=== PATIENT | male | born 1960 | race Caucasian/White ===

== ENCOUNTER 2023-03-12 05:07 | Emergency (ER) | payer OTHER ==
--- OUTSIDE RECORDS SUMMARY | 2023-03-12 05:10 | XMS REPORT | Continuity of Care Document ---
:1960 Author Organization [facility] t Address [address] [facility] [address] [place] [address] Care Team Providers Name Role Phone Unavailable Unavailable Unavailable Problems This patient has no known problems. Allergies, Adverse Reactions, Alerts This patient has no known allergies or adverse reactions. Medications This patient has no known medications. Procedures This patient has no known procedures. Encounters Start End Encounter Admission Attending Care Care Encounter Source Date/Time Date/Time Type Type Clinicians Facility Department ID 2023-02-24 2023-02-24 Outpatient [facility] Healthcare [id number] [facility] 14:06:56 14:06:56 0523 F Lionel 2022-12-03 2022-12-03 Outpatient [id number] [facility] 09:14:29 09:14:29 0301 F Lionel 2022-08-07 2022-08-07 Outpatient [id number] [facility] 17:25:50 17:25:50 1103 F Lionel Results This patient has no known results.
[2023-03-12] MEDS ORDERED: NA CHLORIDE 0.9% 1,000 ML ONE (05:24)
[2023-03-12 05:30] LABS: Arterial Blood Carboxyhemoglob 2.8 % (0-1.5); Blood Gas Oxyhemoglobin 91.4 % (94-97); Blood O2 Saturation 95.2 % (92-98.5)
[2023-03-12 05:41] LABS: Specific Gravity 1.022 (1.005-1.030); Urine Bilirubin NEGATIVE (Negative); Urine Blood Negative (Negative); Urine Clarity Clear (Clear); Urine Color Light-Yellow (Yellow); Urine Glucose NEGATIVE (Negative); Urine Protein NEGATIVE (Negative); Urine Urobilinogen Normal (Normal)
[2023-03-12 05:46] LABS: Absolute Lymphocytes (CBC) 1.4 K/uL (0.7-4.9); Hematocrit 34.9 % (39.6-49.0); Lymphocytes % 19.5 % (15.3-44.8); MCV 91.6 fL (80-100); MPV 7.9 fL (7.6-11.3); Protime INR 1.15; RBC Red Blood Cell Count 3.81 M/uL (4.33-5.43)
[2023-03-12 06:05] LABS: ALT/SGPT 23 U/L (16-61); AST/SGOT 22 U/L (15-37); Alkaline Phosphatase 37 U/L (45-117); BUN Blood Urea Nitrogen 19 mg/dL (7-18); Barbiturates NEGATIVE (NEGATIVE); Benzodiazepines NEGATIVE (NEGATIVE); Bicarbonate 29 mEq/L (21-32); Bilirubin Direct 0.2 mg/dL (0-0.2); Bilirubin Indirect, Calculated 0.5 mg/dL (0.2-0.8); Bilirubin Total 0.7 mg/dL (0.2-1.0); Cocaine NEGATIVE (NEGATIVE); Glomerular Filtration Rate 105 ml/min (=/>90); Glucose Level 99 mg/dL (74-106); METHAMPHETAM POSITIVE (NEGATIVE); Methadone NEGATIVE (NEGATIVE); Opiates NEGATIVE (NEGATIVE); Phencyclidine NEGATIVE (NEGATIVE); Protein, Total 6.6 g/dL (6.4-8.2); Sodium Level 136 mEq/L (136-145); THC Cannibis POSITIVE (NEGATIVE)
[2023-03-12] MEDS ORDERED: ONDANSETRON 4 MG/2 ML VIAL ONE (06:16)
[2023-03-12] MEDS ORDERED: THIAMINE 200 MG/2 ML INJ ONE (06:16)
[2023-03-12] MEDS ORDERED: D5 0.9 NS 1,000 ML IV ONE (06:17)
[2023-03-12 06:37] LABS: SARS-CoV-2 Antigen Rapid Res Negative (Negative)
--- NOTE | 2023-03-12 10:50 | RAD REPORT ---
EXAM DESCRIPTION: CT - Head C Spine Mpr Wo Con - 03/12/2023 7:02 am CLINICAL HISTORY: 62 years Male CONFUSED TECHNIQUE: Noncontrast CT head and cervical spine with coronal and sagittal reformats. All CT scans at this facility use dose modulation, iterative reconstruction, and/or weight based dosing when appro priate to reduce radiation dose to as low as reasonably achievable. COMPARISON: None. FINDINGS: HEAD: Brain: No intracranial hemorrhage, midline shift, mass or mass effect. No obvious large acute territo rial infarction. Ventricles: No hydrocephalus. Orbits: Unremarkable. Sinus: Partial opacification of ethmoid sinuses. Mastoid: clear Osseous: Unremarkable. Soft tissues: Unremarkable. CERVICAL SPINE: Vertebra: No acute fracture. 5 x 3 mm focal lucency at C3 vertebral body anteriorly. Degenerative change: Multilevel degenerative changes. No high grade spinal canal stenosis. Alignment: No spondylolisthesis. Soft tissues: Unremarkable. Lungs: Emphysematous changes of the visualized lung apices. IMPRESSION: 1. No acute intracranial findings. 2. No acute cervical spine pathology. 3. Indeterminate 5 mm focus of lucency in C3 vertebral body anteriorly. Consider further evaluation w ith routine outpatient MRI Electronically signed by: Gui Chaney MD 03/12/2023 6:54 AM CDT Due to temporary technical issues with the PACS/Fluency reporting system, reports are being signed by the in house radiologists without review as a courtesy to insure prompt reporting. The interpreting radiologist is fully responsible for the content of the report.
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
[2023-03-12 13:35] VITALS: TEMP 97.5
[2023-03-12 13:47] VITALS: O2SAT 98
[2023-03-12 13:48] VITALS: BP 116/66
--- NOTE | 2023-03-13 14:50 | EKG ---
Test Date: 2023-03-12 Test Time: 06:50:21 Wellness Ambassador: JUAN CARLOS MEASUREMENT RESULTS: Intervals: Rate: 73 [place]: 134 QRSD: 72 QT: 410 QTc: 451 [place]: P: 21 [place]: 134 QRS: 19 T: 2 INTERPRETIVE STATEMENTS: Normal sinus rhythm Normal ECG Compared to ECG 02/28/2016 06:50:02 Sinus tachycardia no longer present Left-axis deviation no longer present ST (T wave) deviation no longer present Electronically Signed On 03-13-23 14:44:51 CDT by Harish Alvarado
== END 2023-03-12 12:56 | disposition home or self-care (01) ==
LOC: ER 05:07
DX: F19.10 Other psychoactive substance abuse, uncomplicated (principal); M54.50 Low back pain, unspecified; Z20.822 Contact with and (suspected) exposure to COVID-19
CPT/HCPCS: 96365; 96361; 96368; 93005; 85025; 80048; 36415; 85610; 80076; 85730; 81003; 80307; 72131; 70450; 72125; 82805; 96375; 99285; 96366; 80143; 80179; 82077; 87811; 36600; J3411; J2405; J7042; J7030

== ENCOUNTER 2023-03-12 19:36 | Emergency (ER) | payer OTHER ==
[2023-03-12] MEDS ORDERED: NALOXONE HCL 2 MG/2 ML VIAL ONE (19:52)
[2023-03-12] MEDS ORDERED: NALOXONE 0.4 MG/ML VIAL ONE (19:52)
[2023-03-12] MEDS ORDERED: NA CHLORIDE 0.9% 1,000 ML ONE (20:04)
--- OUTSIDE RECORDS SUMMARY | 2023-03-12 20:07 | XMS REPORT | Continuity of Care Document ---
:1960 Author Organization [facility] t Address [address] [place] [address] Care Team Providers Name Role Phone Unavailable [...] Clinicians Facility Department ID 2023-02-24 2023-02-24 Outpatient [facility] [id number] [facility] 14:06:56 14:06:56 0523 F Lionel 2022-12-03 2022-12-03 Outpatient [facility] [id number] [facility] 09:14:29 09:14:29 0301 F Lionel 2022-08-07 2022-08-07 Outpatient [facility] [id number] [facility] 17:25:50 17:25:50 1103 F Lionel Results This patient has no known results.
[2023-03-12 20:23] LABS: Absolute Lymphocytes (CBC) 1.7 K/uL (0.7-4.9); Hematocrit 36.9 % (39.6-49.0); Lymphocytes % 22.1 % (15.3-44.8); MCV 91.7 fL (80-100); MPV 8.4 fL (7.6-11.3); RBC Red Blood Cell Count 4.03 M/uL (4.33-5.43)
[2023-03-12 20:26] LABS: Specific Gravity 1.017 (1.005-1.030); Urine Bacteria None Seen /HPF (<20); Urine Bilirubin NEGATIVE (Negative); Urine Blood 3+ (Negative); Urine Clarity Turbid (Clear); Urine Color Light-Yellow (Yellow); Urine Glucose NEGATIVE (Negative); Urine Mucus Slight /HPF (None Seen); Urine Protein TRACE (Negative); Urine RBC >50 /HPF (None Seen); Urine Urobilinogen Normal (Normal); Urine pH 5.5 (5.0-7.0)
[2023-03-12 20:31] LABS: Protime INR 1.05
[2023-03-12 20:34] LABS: Barbiturates NEGATIVE (NEGATIVE); Benzodiazepines POSITIVE (NEGATIVE); Cocaine NEGATIVE (NEGATIVE); METHAMPHETAM POSITIVE (NEGATIVE); Methadone NEGATIVE (NEGATIVE); Opiates NEGATIVE (NEGATIVE); Phencyclidine NEGATIVE (NEGATIVE); THC Cannibis POSITIVE (NEGATIVE)
[2023-03-12 20:45] LABS: ALT/SGPT 25 U/L (16-61); AST/SGOT 27 U/L (15-37); Albumin 3.2 g/dL (3.4-5.0); Alkaline Phosphatase 40 U/L (45-117); BUN Blood Urea Nitrogen 18 mg/dL (7-18); Bicarbonate 28 mEq/L (21-32); Bilirubin Direct 0.2 mg/dL (0-0.2); Bilirubin Indirect, Calculated 0.7 mg/dL (0.2-0.8); Bilirubin Total 0.9 mg/dL (0.2-1.0); Creatine Phosphokinase 251 U/L (39-308); Glomerular Filtration Rate 106 ml/min (=/>90); Glucose Level 97 mg/dL (74-106); Potassium 3.2 mEq/L (3.5-5.1); Protein, Total 7.2 g/dL (6.4-8.2); Sodium Level 137 mEq/L (136-145)
[2023-03-12] MEDS ORDERED: MIDAZOLAM HCL 2 MG/2 ML INJ ONE (23:48)
[2023-03-13] MEDS ORDERED: WATER FOR INJ,STERILE 10 ML ONE (00:18)
[2023-03-13] MEDS ORDERED: ZIPRASIDONE MESYLA 20 MG/VIAL IM ONE (00:18)
[2023-03-13] MEDS ORDERED: NA CHLORIDE 0.9% 1,000 ML ONE (00:31)
[2023-03-13] MEDS ORDERED: KCL 20 MEQ/100 mL IVPB 100 ML IV ONE (00:31)
--- NOTE | 2023-03-13 02:48 | ER ---
Nurse's Notes [facility] Name: Osvaldo Gallegos Age: 62 yrs Sex: Male : 1960 Arrival Date: 03/12/2023 Time: 19:36 Bed 5 Private MD: Diagnosis: Adverse effect of amphetamines;Adverse effect of benzodiazepines;Hypokalemia Presentation: 03/12 19:42 Chief complaint: EMS states: EMS stated patient was found on the ground pf1 unresponsive, responds to painful stimuli,onset approximately 1 hour ago. Patient currently in PD custody. PD officer stated patient was being arrested, was alert and orientated approximately 1 hour ago then became AMS. Coronavirus screen: At this time, unable to obtain information related to travel outside the [place] Ebola Screen: Patient negative for fever greater than or equal to 101.5 degrees Fahrenheit, and additional compatible Ebola Virus Disease symptoms. Initial Sepsis Screen: Does the patient meet any 2 criteria? No. Patient's initial sepsis screen is negative. Does the patient have a suspected source of infection? No. Patient's initial sepsis screen is negative. Risk Assessment:. 19:42 Method Of Arrival: EMS: [facility] pf1 22:09 Risk Assessment: Do you want to hurt yourself or someone else? Unable to obtain. Onset kd3 of symptoms was March 12, 2023. 22:09 Acuity: MONICA 2 kd3 Triage Assessment: 22:10 General: Appears unkempt, malnourished, Behavior is restless. Pain: Unable to use pain kd3 scale. Patient appears to be moaning, restless. Historical: - PMHx: 22:10 abdominal hernia; arsenic poisoning; kd3 - Immunization history:: Adult Immunizations up to date. - Social history:: Smoking status: unknown. Screenin:09 [facility] ED Fall Risk Assessment (Adult) History of falling in the last 3 months, kd3 including since admission No falls in past 3 months (0 pts) Confusion or Disorientation No (0 pts) Intoxicated or Sedated No (0 pts) Impaired Gait No (0 pts) Mobility Assist Device Used No (0 pt) Altered Elimination No (0 pt) Score/Fall Risk Level 0 - 2 = Low Risk Maintained a safe environment. Abuse screen: Denies threats or abuse. Denies injuries from another. Nutritional screening: No deficits noted. Tuberculosis screening: No symptoms or risk factors identified. Assessment: 19:52 Reassessment: Police at bedside (Officer Ty) asking to be called when patient is vc1 discharged for two outstanding warrents. 20:32 General: Appears uncomfortable, Behavior is anxious, quiet, uncooperative. kd3 20:50 General: electronic prepress technician attempted to take the patient to CT with the officer. Pt became kd3 combative at the CT scan and was returned to the room. Will attempt again then the patient is more alert . 21:19 General: Appears uncomfortable, Behavior is agitated, restless, uncooperative. Neuro: kd3 Level of Consciousness is confused, lethargic, Oriented to person. Cardiovascular: Patient's skin is warm and dry. 21:50 Reassessment: No changes from previously documented assessment. Patient and/or family kd3 updated on plan of care and expected duration. Pain level reassessed. 22:40 Reassessment: No changes from previously documented assessment. Patient and/or family kd3 updated on plan of care and expected duration. Pain level reassessed. 03/13 00:01 General: This RN, electronic prepress technician, X-ray tech and officer attempted to take the patient to CT kd3 again. Pt became combative at CT. Provider called to CT room. Verbal order to 2 of versed received. No improvement with the patient. Another 2 of versed was administered. Still no improvement. PT returned to the room. . 02:04 General: Appears uncomfortable, Behavior is calm, quiet, uncooperative. Neuro: Level of kd3 Consciousness is confused, lethargic, Oriented to person. Respiratory: Airway is patent Trachea midline Respiratory effort is even, unlabored, Respiratory pattern is regular, symmetrical. 02:39 General: Nasal trumpet removed. Pt currently maintaining his own airway. . kd3 02:51 Reassessment: Patient and/or family updated on plan of care and expected duration. Pain kd3 level reassessed. 02:52 General: Provider spoke with Matthew Nguyen regarding pt discharge. Plan is to kd3 discharge the patient to police custody. . 03:15 General: Appears in no apparent distress. Behavior is calm, cooperative, Peterson catheter kd3 removed by this RN. Pt is more awake and responsive. . Pain: Complains of pain in back pain. Neuro: Level of Consciousness is awake, obeys commands, Oriented to person, place. Respiratory: Airway is patent Trachea midline Respiratory effort is even, unlabored, Respiratory pattern is regular, symmetrical. Vital Signs: 03/12 19:42 BP 135 / 80; Pulse 104; Resp 20; Temp 98.6; Pulse Ox 97% on R/A; Weight 67.5 kg; pf1 21:01 BP 135 / 76; Pulse 76; Resp 16; Pulse Ox 97% on R/A; kd3 22:09 BP 121 / 66; Pulse 86; Resp 19; Pulse Ox 98% on R/A; kd3 23:22 BP 109 / 65; Pulse 72; Resp 16; Pulse Ox 98% on R/A; kd3 03/13 02:04 Pulse 74; Resp 18; Pulse Ox 100% on R/A; kd3 03:16 BP 122 / 71; Pulse 84; Resp 19; Pulse Ox 100% on R/A; kd3 ED Course: 03/12 19:38 Patient arrived in ED. em1 19:43 Preet Humphrey DO is Attending Physician. ms3 19:43 Pantera Francis PA is PHCP. cp 19:45 Peterson cath inserted, using sterile technique, 16 Fr., by dc, balloon inflated, to kd3 gravity drainage, urine specimen collected. 19:45 Maintain EMS IV. Dressing intact. Good blood return noted. Site clean \T\ dry. Gauge \T\ kd 3 site: 20 gauge right forearm . Placed nasal trumpet 30 Fr via right nare. 20:03 Acetaminophen Sent. kd3 20:03 Basic Metabolic Panel Sent. kd3 20:03 CBC with Diff Sent. kd3 20:03 ETOH Level Sent. kd3 20:03 Hepatic Function Sent. kd3 20:03 PT-INR Sent. kd3 20:03 Ptt, Activated Sent. kd3 20:03 Salicylate Sent. kd3 20:03 Urine Drug Screen Sent. kd3 20:03 Urinalysis w/ reflexes Sent. kd3 20:51 Radiology exam delayed due to took patient to CT, patient not able to hold still enough nj for CT, took patient back, notified Nurse. 21:01 Brandi Peng, RN is Primary Nurse. kd3 22:10 Triage completed. kd3 22:11 Patient has correct armband on for positive identification. kd3 22:11 Arm band placed on. kd3 03/13 01:44 CT Head C Spine In Process Unspecified. EDMS 02:16 Attending Physician role handed off by Preet Humphrey DO sp3 02:16 Stephany Willams MD is Attending Physician. sp3 02:53 No provider procedures requiring assistance completed. kd3 03:17 IV discontinued, intact, bleeding controlled, No redness/swelling at site. Pressure kd3 dressing applied. Administered Medications: 03/12 19:58 Drug: Naloxone IVP 1 mg Route: IVP; Site: left forearm; kd3 03/13 02:54 Follow up: Response: No adverse reaction kd3 03/12 20:02 Drug: NS 0.9% IV 1000 ml Route: IV; Rate: 1 bolus; Site: left forearm; kd3 03/13 03:17 Follow up: IV Status: Completed infusion kd3 03/12 23:22 Not Given (inappropriate at this time ): Potassium PO Effervescent Tablet 50 mEq PO kd3 once; dissolve in 4 ounces of water or juice 23:53 CANCELLED (Physician Discretion): Geodon IM 20 mg IM once cp 23:59 CANCELLED (Physician Discretion): NS 0.9% IV 500 ml IV at 50 ml/hr continuous kd3 03/13 00:00 Drug: Midazolam IVP or IV 2 mg Route: IVP; Site: left antecubital; kd3 02:54 Follow up: Response: No adverse reaction; No change in condition kd3 00:05 Drug: Midazolam IVP or IV 2 mg Route: IVP; Site: left antecubital; kd3 02:54 Follow up: Response: No adverse reaction; No change in condition kd3 00:14 Drug: Geodon IM 10 mg Route: IM; Site: left gluteus; kd3 02:54 Follow up: Response: No adverse reaction; Anxiety decreased kd3 00:40 Drug: Potassium Chloride IV 20 mEq Route: IV; Rate: calculated rate; Site: right pf1 forearm; 03:17 Follow up: IV Status: Completed infusion kd3 00:40 Drug: NS 0.9% IV 1000 ml Route: IV; Rate: 1 bolus; Site: right forearm; pf1 03:17 Follow up: IV Status: Completed infusion kd3 Medication: 03/12 22:11 VIS not applicable for this client. kd3 Output: 03/13 02:29 Urine: 1400ml (Peterson); Total: 1400ml. kd3 Outcome: 02:47 Discharge ordered by . cp 03:17 Discharged to Law Enforcement kd3 03:17 Condition: stable 03:17 Discharge instructions given to patient, Instructed on discharge instructions. 03:17 Patient left the ED. kd3 Signatures: Dispatcher [employer] EDMS Tanmay Michelle em1 Pantera Francis PA PA cp Jordan, Nathan nj Sims, Marcus, DO DO ms3 Stephany Willams MD MD sp3 Brandi Peng, RN RN kd3 Hilda Olivarez RN RN vc1 Shadia Sanchez RN RN pf1 Corrections: (The following items were deleted from the chart) 02:52 03/12 21:50 Reassessment: No changes from previously documented assessment. Patient kd3 and/or family updated on plan of care and expected duration. Pain level reassessed. Patient is alert, oriented x 3, equal unlabored respirations, skin warm/dry/pink. kd3 03/13 02:52 03/12 22:40 Reassessment: No changes from previously documented assessment. Patient kd3 and/or family updated on plan of care and expected duration. Pain level reassessed. Patient is alert, oriented x 3, equal unlabored respirations, skin warm/dry/pink. kd3
--- NOTE | 2023-03-13 02:48 | EDPHYS ---
Physician Documentation [facility] Name: Osvaldo Gallegos Age: 62 yrs Sex: Male : 1960 Arrival Date: 03/12/2023 Time: 19:36 Bed 5 Private MD: ED Physician Stephany Willams HPI: 03/12 19:50 This 62 yrs old Male presents to ER via EMS with complaints of Altered Mental Status. cp 19:50 The patient presents with decreased mental status. Onset: The symptoms/episode cp began/occurred suddenly, just prior to arrival. Possible causes: drug use. Associated signs and symptoms: Pertinent negatives: chest pain, fever. Historical: - PMHx: 22:10 abdominal hernia; arsenic poisoning; kd3 - Immunization history:: Adult Immunizations up to date. - Social history:: Smoking status: unknown. ROS: 19:55 Constitutional: Negative for fever. cp 19:55 Neuro: Positive for altered mental status. cp 19:55 Unable to obtain ROS due to altered mental status. Exam: 19:53 ECG was reviewed by the Attending Physician. cp 19:55 Constitutional: The patient appears non-diaphoretic, non-toxic, well developed, well cp nourished. 19:55 Head/Face: Normocephalic, atraumatic. cp 19:55 Eyes: Pupils: pinpoint, bilaterally, Conjunctiva: normal, no exudate, no injection, Sclera: no appreciated abnormality, Lids and lashes: appear normal, bilaterally. 19:55 ENT: External ear(s): are unremarkable, Ear canal(s): are normal, clear, TM's: dullness, bilaterally, Nose: is normal, Mouth: Lips: moist, Oral mucosa: moist, Posterior pharynx: is normal, airway is patent, no erythema, no exudate. 19:55 Neck: C-spine: vertebral tenderness, is not appreciated, crepitus, is not appreciated, ROM/movement: Meningeal signs: are not present, nuchal rigidity, is not appreciated. 19:55 Chest/axilla: Inspection: normal, Palpation: is normal, no crepitus, no tenderness. 19:55 Cardiovascular: Rate: tachycardic, Rhythm: regular, Edema: is not appreciated, JVD: is not appreciated. 19:55 Respiratory: the patient does not display signs of respiratory distress, Respirations: shallow respirations, that is mild, Breath sounds: are clear throughout, no decreased breath sounds, no stridor, no wheezing. 19:55 Abdomen/GI: Inspection: abdomen appears normal, Palpation: abdomen is soft and non-tender, in all quadrants. 19:55 Skin: no rash present. 19:55 Neuro: Mentation: unable to follow commands, somnolent, responsive to pain, Motor: moves all fours, strength is normal. Vital Signs: 19:42 BP 135 / 80; Pulse 104; Resp 20; Temp 98.6; Pulse Ox 97% on R/A; Weight 67.5 kg; pf1 21:01 BP 135 / 76; Pulse 76; Resp 16; Pulse Ox 97% on R/A; kd3 22:09 BP 121 / 66; Pulse 86; Resp 19; Pulse Ox 98% on R/A; kd3 23:22 BP 109 / 65; Pulse 72; Resp 16; Pulse Ox 98% on R/A; kd3 06/09 02:04 Pulse 74; Resp 18; Pulse Ox 100% on R/A; kd3 03:16 BP 122 / 71; Pulse 84; Resp 19; Pulse Ox 100% on R/A; kd3 MDM: 02:47 Patient medically screened. cp 02:47 Data reviewed: vital signs, nurses notes, lab test result(s), EKG, radiologic studies, cp CT scan. 02:47 Differential Diagnosis: CVA, electrolyte abnormality, alcohol intoxication, cp intracranial bleed, overdose, seizure, sepsis, volume depletion. I considered the following discharge prescriptions or medication management in the emergency department Medications were administered in the Emergency Department. See MAR. Counseling: I had a detailed discussion with the patient and/or guardian regarding: the historical points, exam findings, and any diagnostic results supporting the discharge/admit diagnosis, lab results, radiology results, to return to the emergency department if symptoms worsen or persist or if there are any questions or concerns that arise at home. Response to treatment: the patient's symptoms have markedly improved after treatment, and as a result, I will discharge patient. 03/12 19:46 Order name: CK; Complete Time: 20:50 cp 03/12 19:46 Order name: Acetaminophen; Complete Time: 20:50 cp 03/12 19:46 Order name: Basic Metabolic Panel; Complete Time: 20:50 cp /08 22:59 Interpretation: Abnormal: K 3.2; CRE 0.68. cp /08 19:46 Order name: CBC with Diff; Complete Time: 20:50 cp /08 19:46 Order name: ETOH Level; Complete Time: 20:50 cp /08 19:46 Order name: Hepatic Function; Complete Time: 20:50 cp 03/12 19:46 Order name: PT-INR; Complete Time: 20:50 cp 03/12 19:46 Order name: Ptt, Activated; Complete Time: 20:50 cp 03/12 19:46 Order name: Salicylate; Complete Time: 20:50 cp 03/12 19:46 Order name: Urinalysis w/ reflexes; Complete Time: 20:50 cp 03/12 19:46 Order name: Urine Drug Screen; Complete Time: 20:50 08 20:50 Interpretation: Normal except: BZO POSITIVE; METHAMPHETAMINE POSITIVE; THC POSITIVE. / 01:18 Order name: CT Head C Spine 08 19:46 Order name: EKG; Complete Time: 19:47 03/12 19:46 Order name: EKG - Nurse/Tech; Complete Time: 19:54 cp 03/12 19:46 Order name: IV Saline Lock; Complete Time: 20:03 03/12 19:46 Order name: Labs collected and sent; Complete Time: 20:03 08 19:46 Order name: Suicide Screening ([place]); Complete Time: 20:03 03/12 19:46 Order name: Peterson; Complete Time: 20:01 cp EC/08 19:53 Rate is 90 beats/min. Rhythm is regular. IA interval is normal. QRS interval is normal. cp QT interval is normal. T waves are Inverted in lead aVR. Interpreted by me. Reviewed by me. Administered Medications: 19:58 Drug: Naloxone IVP 1 mg Route: IVP; Site: left forearm; [facility] 03/13 02:54 Follow up: Response: No adverse reaction [facility] 03/12 20:02 Drug: NS 0.9% IV 1000 ml Route: IV; Rate: 1 bolus; Site: left forearm; [facility] 03/13 03:17 Follow up: IV Status: Completed infusion [facility] 03/12 23:22 Not Given (inappropriate at this time ): Potassium PO Effervescent Tablet 50 mEq PO kd3 once; dissolve in 4 ounces of water or juice 23:53 CANCELLED (Physician Discretion): Geodon IM 20 mg IM once cp 23:59 CANCELLED (Physician Discretion): NS 0.9% IV 500 ml IV at 50 ml/hr continuous kd3 03/13 00:00 Drug: Midazolam IVP or IV 2 mg Route: IVP; Site: left antecubital; kd3 02:54 Follow up: Response: No adverse reaction; No change in condition kd3 00:05 Drug: Midazolam IVP or IV 2 mg Route: IVP; Site: left antecubital; kd3 02:54 Follow up: Response: No adverse reaction; No change in condition kd3 00:14 Drug: Geodon IM 10 mg Route: IM; Site: left gluteus; kd3 02:54 Follow up: Response: No adverse reaction; Anxiety decreased kd3 00:40 Drug: Potassium Chloride IV 20 mEq Route: IV; Rate: calculated rate; Site: right pf1 forearm; 03:17 Follow up: IV Status: Completed infusion kd3 00:40 Drug: NS 0.9% IV 1000 ml Route: IV; Rate: 1 bolus; Site: right forearm; pf1 03:17 Follow up: IV Status: Completed infusion kd3 Disposition: 03/12 19:44 PA/BIT SETTER's history reviewed, patient interviewed, and examined. HPI: 62-year-old male ms3 presents in police custody for altered mental status. Please officer states patient was alert and oriented and then after being handcuffed and placed in the police patrol unit he became unresponsive. My personal exam of patient reveals: On exam patient is responsive to painful stimuli, heart rate is tachycardic and regular, lungs are clear auscultation bilaterally, skin is dry and without rashes. Abdomen is soft and nontender to palpation. I agree with assessment and care plan and confirm the diagnosis (es) above. 03/13 09:19 Co-signature as Attending Physician, Preet Humphrey DO. Chart complete. ms3 Disposition Summary: 03/13/23 02:47 Discharge Ordered Location: Home cp Problem: new cp Symptoms: have improved cp Condition: Stable cp Diagnosis - Adverse effect of amphetamines cp - Adverse effect of benzodiazepines cp - Hypokalemia cp Followup: cp - With: Emergency Department - When: As needed - Reason: Worsening of condition Discharge Instructions: - Discharge Summary Sheet cp - Potassium Content of Foods cp - Benzodiazepine Overdose cp - Methamphetamines Use Disorder cp - Hypokalemia cp Forms: - Medication Reconciliation Form cp - Thank You Letter cp - Antibiotic Education cp - Prescription Opioid Use cp Signatures: Dispatcher [employer] EDMS Pantera Francis PA PA cp Preet Humphrey DO DO ms3 Brandi Peng RN RN kd3 Shadia Sanchez RN RN pf1 Corrections: (The following items were deleted from the chart) 03/12 23:53 23:51 Geodon IM 20 mg IM once ordered. cp cp 23:59 23:28 NS 0.9% IV 500 ml IV at 50 ml/hr continuous ordered. kd3 kd3 03/13 00:13 03/12 19:46 Head Brain Wo Cont+CT.RAD.BRZ ordered. EDMS EDMS
[2023-03-13 03:24] VITALS: TEMP 98.6
[2023-03-13 03:29] VITALS: O2SAT 100
[2023-03-13 03:30] VITALS: BP 122/71
--- NOTE | 2023-03-13 14:47 | EKG ---
Test Date: 2023-03-12 Test Time: 19:46:16 Environmental Compliance Engineer: NIKKO MEASUREMENT RESULTS: Intervals: Rate: 90 [place]: 130 QRSD: 82 QT: 366 QTc: 447 [place]: P: 71 [place]: 130 QRS: 57 T: 67 INTERPRETIVE STATEMENTS: Sinus rhythm with sinus arrhythmia with fusion complexes Low voltage QRS Borderline ECG Compared to ECG 03/12/2023 06:50:21 Fusion complex(es) now present Low QRS voltage now present Electronically Signed On 03-13-23 14:44:28 CDT by Harish Alvarado
--- NOTE | 2023-03-15 14:18 | RAD REPORT ---
EXAM DESCRIPTION: Head C Spine Mpr Wo Con CLINICAL HISTORY: MENTAL STATUS CHANGE TECHNIQUE: Contiguous axial CT images obtained through the brain without IV contrast. Coronal and sa gittal reformatted images were provided. This exam was performed according to our departmental dose-optimization program, which includes autom ated exposure control, adjustment of the mA and/or kV according to patient size and/or use of iterati ve reconstruction technique. COMPARISON: March 12 FINDINGS: Brain: No significant white matter changes. No focal mass effect. Mera-white matter differ entiation is within normal limits. No hemorrhage. Ventricles: No ventriculomegaly or midline shift. Extra-axial spaces: No extra-axial collection or hemorrhage. Paranasal sinuses and mastoid air cells: Paranasal sinus mucosal thickening, likely chronic. Bones: Unremarkable Soft tissues: Unremarkable IMPRESSION: No evidence of acute intracranial pathology. EXAM DESCRIPTION: Head C Spine Mpr Wo Con CLINICAL HISTORY: MENTAL STATUS CHANGE TECHNIQUE: Contiguous axial CT images obtained through the cervical spine without IV contrast. Cor onal and sagittal reformatted images also provided. This exam was performed according to our departmental dose-optimization program, which includes autom ated exposure control, adjustment of the mA and/or kV according to patient size and/or use of iterati ve reconstruction technique. COMPARISON: None available for comparison FINDINGS: Vertebra: No acute fracture or subluxation. Degenerative changes: Mild degenerative changes of the cervical spine, similar to the prior examinati on. Small well-defined lucency at C3, again noted. Calcifications along the colon ligament. Prevertebral soft tissues: Unremarkable Lung apices: Chronic interstitial changes. IMPRESSION: No acute cervical spine fracture. No significant interval change since the prior examina tion. Electronically signed by: Eric Pink MD 03/13/2023 2:13 AM CDT Due to temporary technical issues with the PACS/Fluency reporting system, reports are being signed by the in house radiologists without review as a courtesy to insure prompt reporting. The interpreting radiologist is fully responsible for the content of the report.
== END 2023-03-13 03:17 | disposition home or self-care (01) ==
LOC: ER 19:36
DX: R41.82 Altered mental status, unspecified (principal); T43.625A Adverse effect of amphetamines, initial encounter; E87.6 Hypokalemia
CPT/HCPCS: 93005; 85025; 81001; 80048; 36415; 82550; 85610; 80076; 85730; 80307; 70450; 72125; 51702; 96372; 99291; 99292; 80143; 80179; 82077; J3480; J2310; J2250; J3486; J7030 ×2

== ENCOUNTER → 2023-09-30 | Emergency (ER) | payer OTHER ==
[~2023-09-30] MED LIST: ACETAMINOPHEN 500 MG TAB ONE; ALBUMIN HUMAN 25% 100 ML IV ONE; DIPHENHYDRAMINE 25 MG TAB/CAP ONE; DIPHENHYDRAMINE 50 MG/ML VIAL ONE; ETOMIDATE 20 MG/10 ML VIAL IV ONE; FENTANYL CITR 100 MCG/2 ML ONE; IBUPROFEN 400 MG TAB ONE; KETAMINE HCL IN 0.9 % NACL 50 MG/5 ML SYRINGE IV ONE; LORAZEPAM 1 MG TABLET ONE; MIDAZOLAM HCL IN 0.9 % NACL/PF 100 MG/100 ML BAG IVPB ONE; MORPHINE 4 MG/ML SYR ONE; NA CHLORIDE 0.9% 1,000 ML ONE; NA CHLORIDE 0.9% 100 ML ONE; NA CHLORIDE 0.9% 250 ML ONE; ONDANSETRON 4 MG/2 ML VIAL ONE; PIPERACIL/TAZO 3.375 GM VIAL IV ONE; ROCURONIUM 50 MG/5 ML VIAL IV ONE; SILVER SULFADIAZINE 1% 25 GM TOP ONE; VANCOMYCIN 1 GM/VIAL ONE; WATER FOR INJ,STERILE 10 ML ONE; ZIPRASIDONE MESYLA 20 MG/VIAL IM ONE
--- OUTSIDE RECORDS SUMMARY | 2023-09-30 00:25 | XMS REPORT | Continuity of Care Document ---
Author Name Unknown Address [address] [place] [address] [facility] Address [address] [place] [address] Care Team Providers Care Crm Architect Name Role Phone Unavailable Unavailable Unavailable Encounters Start Date/Time End Date/Time Encounter Type Admission Type Attending Clinicians Care Facility Care Department Encounter ID Source 2023-09-09 15:10:01 2023-09-09 15:10:01 Outpatient SFA S[facility] [id number] Pan[facility] F Lionel 2023-07-16 15:00:05 2023-07-16 15:00:05 Outpatient SFA SFA [id number] [facility] F Lionel 2023-07-04 13:30:13 2023-07-04 13:30:13 Outpatient SFA SFA [id number] [facility] F Lionel 2023-02-24 14:06:56 2023-02-24 14:06:56 Outpatient SFA SFA [id number] [facility] F Lionel 2022-12-03 09:14:29 2022-12-03 09:14:29 Outpatient SFA SFA [id number] [facility] Cameron Lionel 2022-08-07 17:25:50 2022-08-07 17:25:50 Outpatient SFA SFA [id number] [facility]tera Flowers
[2023-09-30 01:16] LABS: Absolute Lymphocytes (CBC) 1.6 K/uL (0.7-4.9); Hematocrit 35.5 % (39.6-49.0); Lymphocytes % 7.5 % (15.3-44.8); MCV 91.9 fL (80-100); MPV 7.1 fL (7.6-11.3); Platelets 431 thou/uL (152-406); RBC Red Blood Cell Count 3.87 M/uL (4.33-5.43)
[2023-09-30 01:18] LABS: Protime INR 1.37
[2023-09-30 01:33] LABS: Albumin 2.3 g/dL (3.4-5.0); Bilirubin Total 0.6 mg/dL (0.2-1.0); Protein, Total 7.2 g/dL (6.4-8.2)
[2023-09-30 01:34] LABS: Potassium 3.7 mEq/L (3.5-5.1)
[2023-09-30 02:09] LABS: Blood Morphology Comment NOT SEEN (NOT SEEN); Platelet Estimate ADEQ
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
[2023-09-30 06:56] LABS: Specific Gravity 1.021 (1.005-1.030); Urine Bacteria None Seen /HPF (<20); Urine Bilirubin NEGATIVE (Negative); Urine Blood Negative (Negative); Urine Clarity Extremely Turbid (Clear); Urine Color Yellow (Yellow); Urine Glucose NEGATIVE (Negative); Urine Protein TRACE (Negative); Urine RBC <5 /HPF (None Seen); Urine Urobilinogen Normal (Normal); Urine pH 5.5 (5.0-7.0)
[2023-09-30 07:03] LABS: Barbiturates NEGATIVE (NEGATIVE); Benzodiazepines NEGATIVE (NEGATIVE); Cocaine NEGATIVE (NEGATIVE); METHAMPHETAM POSITIVE (NEGATIVE); Methadone NEGATIVE (NEGATIVE); Opiates POSITIVE (NEGATIVE); Phencyclidine NEGATIVE (NEGATIVE); THC Cannibis NEGATIVE (NEGATIVE)
--- NOTE | 2023-09-30 08:06 | RAD REPORT ---
EXAM DESCRIPTION: Adri Single View09/30/2023 6:54 am CLINICAL HISTORY: DYSPNEA COMPARISON: Chest Single View dated 03/05/2016; Chest Single View dated 03/01/2016; Chest Single View d ated 02/27/2016 TECHNIQUE: Portable AP view of the chest. FINDINGS: Endotracheal tube, enteric tube, and right IJ CVC in satisfactory position. Enteric tube t erminates 5 cm above the jc. Chronic appearing peripheral reticular opacities, upper lobe predomi nant, with background hyperlucency. Some improvement of opacification in the peripheral left more leda n right lung since the prior exam which may in part relate to technical factors. The lungs show no ne w focal consolidation. No pneumothorax or effusion. The cardiomediastinal contours are unremarkable. IMPRESSION: Stable chronic interstitial changes as above, with background hyperlucency which may rel ate to COPD.
[2023-09-30 10:34] VITALS: O2SAT 100
[2023-09-30 10:42] VITALS: BP 92/59; TEMP 95.8
--- NOTE | 2023-09-30 12:01 | RAD REPORT ---
EXAM DESCRIPTION: US - UPPER EXTREMITY VENOUS UNILATE - 09/30/2023 1:27 am CLINICAL HISTORY: Right upper extremity cellulitis TECHNIQUE: Real-time duplex ultrasound scan of the right upper extremity veins integrating B-mode tw o-dimensional vascular structure, Doppler spectral analysis, color flow Doppler imaging and compressi on. COMPARISON: No relevant prior studies available. FINDINGS: Deep veins: Unremarkable. No DVT in the internal jugular, subclavian, axillary, brachi al, radial or ulnar veins. The veins demonstrate normal color flow, are normally compressible, with normal phasic flow and/or augmentation response. Superficial veins: Unremarkable. No thrombus in the visualized basilic and cephalic veins. Soft tissues: No acute findings. IMPRESSION: No evidence for deep venous thrombosis within the right upper extremity. Electronically signed by: Gino Norris MD 09/30/2023 02:18 AM WOOD MACHINIST APPRENTICE Due to temporary technical issues with the PACS/Fluency reporting system, reports are being signed by the in house radiologist without review as a courtesy to ensure prompt reporting. The interpreting r adiologist is fully responsible for the content of the report.
--- NOTE | 2023-09-30 12:08 | RAD REPORT ---
EXAM DESCRIPTION: RAD - Forearm Right - 09/30/2023 12:58 am CLINICAL HISTORY: Right arm injury COMPARISON: None. FINDINGS: 2 views of the right forearm. No acute fracture or dislocation. Normal osseous mi neralization. No joint effusion. Dorsal soft tissue edema. IMPRESSION: No acute fracture or dislocation. Electronically signed by: Los Good DO 09/30/2023 01:40 AM CORPORATE SECRETARY M Due to temporary technical issues with the PACS/Fluency reporting system, reports are being signed by the in house radiologist without review as a courtesy to ensure prompt reporting. The interpreting r adiologist is fully responsible for the content of the report.
--- NOTE | 2023-10-01 13:24 | EKG ---
Test Date: 2023-09-30 Test Time: 07:20:01 Bombsight Specialist: MUSTAPHA MEASUREMENT RESULTS: Intervals: Rate: 93 TX: 130 QRSD: 80 QT: 394 QTc: 489 [place]: P: 68 TX: 130 QRS: 60 T: 68 INTERPRETIVE STATEMENTS: Normal sinus rhythm Low voltage QRS Prolonged QT Abnormal ECG Compared to ECG 03/12/2023 19:46:16 Prolonged QT interval now present Sinus arrhythmia no longer present Fusion complex(es) no longer present Electronically Signed On 10-01-23 13:20:17 STAFFING RECRUITER by John Gentile
== END ==
LOC: ER 00:21
PROC: 05HM33Z Insertion of Infusion Device into Right Internal Jugular Vein, Percutaneous Approach (ICD-10-PCS; principal; 2023-09-30)
DX: T22.211A Burn of second degree of right forearm, initial encounter (principal); A41.9 Sepsis, unspecified organism; R65.21 Severe sepsis with septic shock; J96.00 Acute respiratory failure, unspecified whether with hypoxia or hypercapnia; L03.113 Cellulitis of right upper limb; F17.210 Nicotine dependence, cigarettes, uncomplicated; Z88.1 Allergy status to other antibiotic agents; Z88.2 Allergy status to sulfonamides
CPT/HCPCS: 93005; 87040 ×2; 85025; 81001; 36415; 82550; 85610; 83605; 85730; 80053; 80307; 71045; 73090; 93971; 31500; 51702; 99285; 94002; 36556; P9047 ×2; J2250; J1200; J2543; J3010 ×2; J2405; J7050; J7030 ×4; J3486